=== PATIENT | female | born 1955 | race Caucasian/White ===

== ENCOUNTER 2017-11-24 08:00 | Outpatient (CLI) | payer MEDICARE | END 2017-11-24 09:00 | disposition home or self-care (01) | LOC: D.MAMMO 08:00 | DX: Z12.31 Encounter for screening mammogram for malignant neoplasm of breast (principal) ==

== ENCOUNTER 2020-07-30 22:00 | Outpatient (CLI) | payer MEDICARE | END 2020-07-30 23:59 | disposition home or self-care (01) | LOC: D.MAMMO 22:00 | PROVIDERS: ATTEND Family Medicine | DX: Z12.31 Encounter for screening mammogram for malignant neoplasm of breast (principal) ==